=== PATIENT | male | born 1985 | race Caucasian/White ===

== ENCOUNTER 2018-07-18 10:01 | Day surgery (SDC) | payer MEDICARE, MEDICAID, BC ==
[~2018-07-18 10:01] MED LIST: EMLA CREAM 5GM (LIDOCAINE/PRILOCAINE) TOP
[2018-07-18] MEDS ORDERED: EMLA CREAM 5GM (LIDOCAINE/PRILOCAINE) As Ordered (11:05)
[2018-07-18] MEDS ORDERED: LR 1,000 ML IV ×2 (12:15→14:15)
[2018-07-18] MEDS ORDERED: MIDAZOLAM INJ 2 MG/2 ML VIAL (J2250) As Ordered (12:51)
[2018-07-18] MEDS ORDERED: ROCURONIUM BROMIDE 50 MG/5 ML VIAL As Ordered (12:51)
[2018-07-18] MEDS ORDERED: PROPOFOL 200 MG/20 ML VIAL As Ordered ×2 (12:51→12:52)
[2018-07-18] MEDS ORDERED: GLYCOPYRROLATE INJ 0.2 MG/ML 2 ML VIAL As Ordered (12:51)
[2018-07-18] MEDS ORDERED: fentaNYL 100 MCG/2 ML INJECTION (J3010) As Ordered ×2 (12:51→13:12)
[2018-07-18] MEDS ORDERED: dexameTHASONE 4 MG/ML 1ML VIAL (J1100) As Ordered ×2 (12:51)
[2018-07-18] MEDS ORDERED: DESFLURANE 240 ML INHALANT As Ordered (13:01)
[2018-07-18] MEDS ORDERED: ONDANSETRON 4MG/2ML VIAL (J2405) As Ordered (13:24)
[2018-07-18] MEDS: IBUPROFEN 100 MG/5 ML SUSP UDC DYE FREE PO (14:11)
[2018-07-18] MEDS ORDERED: fentaNYL 100 MCG/2 ML INJECTION (J3010) IV (14:15)
[2018-07-18] MEDS ORDERED: ONDANSETRON 4MG/2ML VIAL (J2405) IV (14:15)
== END 2018-07-18 16:05 | disposition home or self-care (01) ==
LOC: M SDC 10:01
DX: K02.9 Dental caries, unspecified (principal); Q90.9 Down syndrome, unspecified
CPT/HCPCS: 41899

== ENCOUNTER 2023-02-02 12:51 | Day surgery (SDC) | payer MEDICARE, MEDICAID ==
[~2023-02-02] VITALS: Ht 157.5 cm; Wt 105.2 kg
[~2023-02-02 12:51] MED LIST changes: +BACTDSTA PO; -EMLA CREAM 5GM (LIDOCAINE/PRILOCAINE) TOP; +IMMU1CHW PO; +LEVO25TA5 PO; +MULT1TAB10 PO; +VITMTA PO
[2023-02-02] MEDS ORDERED: GLYCOPYRROLATE INJ 0.2 MG/ML 2 ML VIAL As Ordered ONE (15:18)
[2023-02-02] MEDS ORDERED: fentaNYL 100 MCG/2 ML INJECTION As Ordered ONE (15:18)
[2023-02-02] MEDS ORDERED: propofoL 200 MG/20 ML VIAL As Ordered ONE (15:18)
[2023-02-02] MEDS ORDERED: LIDOCAINE 2% 100MG/5ML SDV (FOR ANES.) As Ordered ONE (15:18)
[2023-02-02] MEDS ORDERED: ONDANSETRON 4MG 2ML VIAL As Ordered ONE (15:18)
[2023-02-02] MEDS ORDERED: ROCURONIUM BROMIDE 50MG/5ML VIAL As Ordered ONE (15:18)
[2023-02-02] MEDS ORDERED: MIDAZOLAM INJ 2MG/2ML VIAL As Ordered ONE (15:18)
[2023-02-02] MEDS ORDERED: KETOROLAC 60MG 2ML VIAL As Ordered ONE (15:18)
[2023-02-02] MEDS ORDERED: ACETAMINOPHEN 1000MG 100ML IV BAG As Ordered ONE (15:19)
[2023-02-02] MEDS ORDERED: SUGAMMADEX SODIUM 500 MG/5 ML VIAL (BRIDION) As Ordered ONE (15:19)
[2023-02-02] MEDS ORDERED: IBUPROFEN 100MG 5ML ORAL SUSP UDC PO PRN (16:50)
[2023-02-02 17:00] VITALS: BP 117/69
== END 2023-02-02 17:20 | disposition home or self-care (01) ==
LOC: M SDC 12:51
PROVIDERS: ATTEND Dentist Pediatric Dentistry
DX: K02.9 Dental caries, unspecified (principal); E03.9 Hypothyroidism, unspecified; Q90.9 Down syndrome, unspecified; Z79.890 Hormone replacement therapy; Z88.0 Allergy status to penicillin
CPT/HCPCS: 41899; 70310; 88300; J0131; J1100; J1885; J2250; J2405; J3010